=== PATIENT | female | born 1970 | race Caucasian/White ===

== ENCOUNTER 2016-12-26 15:58 | Emergency (ER) | payer OTHER ==
[2016-12-26] MEDS ORDERED: Sodium Chloride 0.9% 1,000 ML IV ONE (17:00)
[2016-12-26 17:19] LABS: RBC URINE 11 /hpf (0-3); URINE BACTERIA RARE (<OCC); URINE BILIRUBIN NEGATIVE (NEGATIVE); URINE BLOOD 2+ (NEGATIVE); URINE COLOR Yellow (YELLOW); URINE GLUCOSE (UA) NORMAL (Normal); URINE KETONE NEGATIVE (NEGATIVE); URINE LEUKOCYTE ESTERASE NEG Leu/uL (Negative); URINE PROTEIN NEGATIVE (NEGATIVE); URINE UROBILINOGEN NORMAL mg/dL (0.2-1.0); WBC URINE 2 /hpf (0-5)
[2016-12-26] MEDS ORDERED: Sodium Chloride 0.9% 1,000 ML ONE (17:25)
[2016-12-26 17:29] LABS: BASO % 0.8 % (0.0-2.0); HEMATOCRIT 39.8 % (34.0-47.0); LYMPH # 0.9 K/uL (1.0-4.3); MEAN CELL VOLUME 86.9 fL (81.0-99.0); MEAN CORPUSCULAR HEMOGLOBIN 28.2 pg (27.0-31.0); MEAN CORPUSCULAR HGB CONC 32.4 g/dL (33.0-37.0); MEAN PLATELET VOLUME 8.6 fL (7.2-11.7); MONO # 0.4 K/uL (0.0-0.8); MONO % 11.3 % (0.0-10.0); RED CELL DISTRIBUTION WIDTH 12.8 % (11.5-14.5); WHITE BLOOD COUNT 3.5 K/uL (4.8-10.8)
[2016-12-26 17:36] LABS: CHLORIDE 96 mmol/L (98-107)
[2016-12-26 17:37] LABS: POTASSIUM 3.8 mmol/L (3.6-5.2); SODIUM 135 mmol/L (132-148)
--- NOTE | 2016-12-26 17:37 | RAD ---
HISTORY: cough weakness COMPARISON: No prior. TECHNIQUE: Chest PA and lateral FINDINGS: LUNGS: No active pulmonary disease. PLEURA: No significant pleural effusion identified. No pneumothorax apparent. CARDIOVASCULAR: Normal. OSSEOUS STRUCTURES: No significant abnormalities. VISUALIZED UPPER ABDOMEN: Normal. OTHER FINDINGS: None. IMPRESSION: No active disease.
[2016-12-26 17:39] LABS: ALB/GLOB RATIO 1.3 (1.0-2.1); AST/SGOT 25 U/L (14-36); BILIRUBIN,TOTAL 0.4 mg/dL (0.2-1.3); CARBON DIOXIDE 26 mmol/L (22-30); GFR AFRICAN-AMERICAN > 60; TOTAL PROTEIN 7.1 g/dL (6.3-8.3)
[2016-12-26 17:40] LABS: ALKALINE PHOSPHATASE 55 U/L (38-126); ALT/SGPT 32 U/L (9-52); BLOOD UREA NITROGEN 6 mg/dL (7-17); CALCIUM 8.5 mg/dl (8.6-10.4); GLUCOSE,RANDOM 91 mg/dL (65-105)
--- NOTE | 2016-12-26 20:05 | C.PDOC ---
History Of Present Illness 46 year old patient presents to the ED complaining of dry cough, occasional vomiting, decreased appetite, and weakness for the past 3 days. Patient also complains of a subjective fever since yesterday. Patient denies diarrhea, urinary symptoms, chest pain, or history of similar complaints. Time Seen by Provider: 12/26/16 16:44 Chief Complaint (Nursing): Abdominal Pain History Per: Patient History/Exam Limitations: no limitations Onset/Duration Of Symptoms: Days (3) Current Symptoms Are (Timing): Still Present Context: Other Severity: Mild Associated Symptoms: Fever, Vomiting, Loss Of Appetite Exacerbating Factors: None Alleviating Factors: None Last Bowel Movement: Today Recent travel outside of the [place]: No Past Medical History Reviewed: Historical Data, Nursing Documentation, Vital Signs Vital Signs: Last Vital Signs Temp 98.5 F 12/26/16 20:21 Pulse 83 12/26/16 20:21 Resp 18 12/26/16 20:21 BP 129/78 12/26/16 20:21 Pulse Ox 99 12/26/16 20:21 - Medical History PMH: Hyperlipidemia Family History: States: Unknown Family Hx - Social History Hx Alcohol Use: No Hx Substance Use: No Review Of Systems Except As Marked, All Systems Reviewed And Found Negative. Constitutional: Positive for: Fever (subjective), Weakness Cardiovascular: Negative for: Chest Pain Respiratory: Positive for: Cough (dry) Gastrointestinal: Positive for: Vomiting (occasional). Negative for: Diarrhea Genitourinary: Negative for: Dysuria, Frequency, Vaginal Bleeding Physical Exam - Physical Exam Appears: Non-toxic, No Acute Distress Skin: Warm, Dry Head: Atraumatic, Normacephalic Eye(s): bilateral: Normal Inspection, EOMI Oral Mucosa: Moist Neck: Normal ROM, Supple Chest: Symmetrical Cardiovascular: Rhythm Regular Respiratory: Normal Breath Sounds, No Rales, No Rhonchi, No Wheezing Gastrointestinal/Abdominal: Soft, No Tenderness, No Guarding, No Rebound Back: Normal Inspection, No CVA Tenderness Extremity: Normal ROM Neurological/Psych: Oriented x3, Normal Speech, Normal Cognition Gait: Steady ED Course And Treatment - Laboratory Results Result Diagrams: 12/26/16 17:25 12/26/16 17:25 - Radiology CXR: Interpreted by Me CXR Interpretation: Yes: No Acute Disease Medical Decision Making Medical Decision Making: Plan: * Labs * Chest x-ray * Pepcid * Zofran * IV fluids Progress: as discussed labs cxr unremarkable, likel viral illness dc home symptomatic tx return new worse sympt Disposition - Disposition Referrals: Tylor Blake MD [Staff Provider] - Disposition: HOME/ ROUTINE Disposition Time: 20:05 Condition: GOOD Additional Instructions: Follow up with dr Wheeler this wk Prescriptions: Famotidine [Pepcid] 1 tab PO BID #30 tab Meclizine HCl 1 tab PO TID PRN #20 tablet PRN Reason: .dizzness Naproxen [Naprosyn] 1 tab PO BID PRN #25 tab PRN Reason: Pain Ondansetron [Zofran Odt] 1 odt PO BID PRN #6 odt PRN Reason: .nausea vomiting Instructions: Viral Syndrome (ED) Forms: Work Excuse Print Language: INDONESIAN - Clinical Impression Clinical Impression: Viral syndrome - Scribe Statement The provider has reviewed the documentation as recorded by the Scribe Patrica Blanca Provider Attestation: All medical record entries made by the Scribe were at my direction and personally dictated by me. I have reviewed the chart and agree that the record accurately reflects my personal performance of the history, physical exam, medical decision making, and the department course for this patient. I have also personally directed, reviewed, and agree with the discharge instructions and disposition.
--- NOTE | 2016-12-26 20:08 | C.PDOC ---
Time Seen by Provider: 12/26/16 16:44 Chief Complaint (Nursing): Abdominal Pain Past Medical History - Medical History PMH: Hyperlipidemia Family History: States: No Known Family Hx - Social History Hx Alcohol Use: No Hx Substance Use: No - Immunization History Hx Tetanus Toxoid Vaccination: No Hx Influenza Vaccination: No Hx Pneumococcal Vaccination: No ED Course And Treatment - Laboratory Results Result Diagrams: 12/26/16 17:25 12/26/16 17:25 Disposition Counseled Patient/Family Regarding: Diagnosis, Need For Followup - Disposition Referrals: Tylor Blake MD [Staff Provider] - Disposition: HOME/ ROUTINE Disposition Time: 20:05 Condition: GOOD Additional Instructions: Follow up with dr Wheeler this wk Prescriptions: Famotidine [Pepcid] 1 tab PO BID #30 tab Meclizine HCl 1 tab PO TID PRN #20 tablet PRN Reason: .dizzness Naproxen [Naprosyn] 1 tab PO BID PRN #25 tab PRN Reason: Pain Ondansetron [Zofran Odt] 1 odt PO BID PRN #6 odt PRN Reason: .nausea vomiting Instructions: Viral Syndrome (ED) Forms: Work Excuse Print Language: CITIZEN OF [place] - Clinical Impression Clinical Impression: Viral syndrome
[2016-12-26 20:22] VITALS: BP 129/78; PULSE 83; RESP 18; TEMP 98.5; O2SAT 99
== END 2016-12-26 20:22 | disposition home or self-care (01) ==
LOC: C.ER 15:58
DX: B34.9 Viral infection, unspecified (principal)
CPT/HCPCS: 71020; 80053; 81001; 85025; 96361; 96374; 96375; 99285; J2405; J7040

== ENCOUNTER 2018-07-27 08:39 | Day surgery (SDC) | payer BC ==
[2018-07-27 09:12] VITALS: BMI 28.5
[2018-07-27] MEDS ORDERED: Propofol 10 mg/ml Inj (20 ML) ONE ×2 (11:20→11:41)
[2018-07-27] MEDS ORDERED: Midazolam 2 MG/2 ML VIAL ONE (11:20)
[2018-07-27] MEDS: Lactated Ringer's 1,000 ML IV ONE (11:45)
[2018-07-27 12:11] VITALS: O2SAT 100
[2018-07-27 13:23] VITALS: BP 122/69; PULSE 68; RESP 21; TEMP 98.1
== END 2018-07-27 13:15 | disposition home or self-care (01) ==
LOC: C.ENDO 08:39
PROVIDERS: ATTEND Internal Medicine Gastroenterology
DX: K21.0 Gastro-esophageal reflux disease with esophagitis (principal); K29.70 Gastritis, unspecified, without bleeding; K44.9 Diaphragmatic hernia without obstruction or gangrene